=== PATIENT | female | born 1935 | race Caucasian/White ===

== ENCOUNTER 2016-12-10 10:28 | Outpatient (CLI) | payer MEDICARE | END 2016-12-10 10:29 | disposition home or self-care (01) | DX: M79.651 Pain in right thigh (principal) ==

== ENCOUNTER 2017-12-19 13:33 | Outpatient (CLI) | payer MEDICARE ==
--- NOTE | 2017-12-20 12:20 | DEXA Report ---
DEXA SCAN: 12/19/2017 CLINICAL INDICATION: Postmenopausal. TECHNIQUE: Dual energy x-ray absorptiometry (DXA) was performed on a [employer] system. Regions measured are the AP spine, femoral neck, and, if needed, forearm. COMPARISON: None. In accordance with the International Society for Clinical Densitometry (ISCD) guidelines, data from previous exams may be reanalyzed using current recommendations and techniques. This is done to allow a more accurate basis for comparison with the current study. FINDINGS Data for the lumbar spine is as follows: : REGION BMD (g/cm/cm) T-SCORE Z-SCORE L1 1.165 0.3 1.5 L2 0.996 -1.7 -0.5 L3 1.056 -1.2 0.0 L4 1.052 -1.2 -0.1 L1-L4 1.067 -0.9 0.2 L2-L4 1.039 -1.3 -0.2 NOTE: All evaluable vertebrae are used for classification. Data for the hip is as follows: REGION BMD (g/cm/cm) T-SCORE Z-SCORE Neck 0.597 -3.2 -1.3 TOTAL 0.577 -3.4 -1.7 NOTE: The femoral neck or total proximal femur, whichever is lowest, is used for classification. IMPRESSION WHO CLASSIFICATION BASED ON THE INTERNATIONAL REFERENCE STANDARD IS OSTEOPOROSIS. FRACTURE RISK IS HIGH. RECOMMENDATION: Patients with diagnosis of osteoporosis or osteopenia should have regular bone mineral density assessment. For those eligible for Medicare, routine testing is allowed once every 2 years. Testing frequency can be increased for patients who have rapidly progressing disease or for those who are receiving medical therapy to restore bone mass. COMMENT World Health Organization (WHO) definitions for osteoporosis and osteopenia: NORMAL BMD: T-score at 1.0 or higher, fracture risk is low. OSTEOPENIA BMD: T-score between 1.0 and -2.5, fracture risk is increased. OSTEOPOROSIS BMD: T-score at 2.5 or lower, fracture risk high. National Osteoporosis Foundation recommends: 1. Obtain adequate dietary calcium (at least 1200 mg per day) and vitamin D (400 -800 international units per day). 2. Participate, as appropriate, in regular weightbearing and muscle- strengthening exercise. 3. Avoid tobacco use and reduce alcohol and caffeine intake. 4. For more detailed information see the website at www.NOF.org. TD: 12/19/2017 14:40 MTDD
== END 2017-12-19 13:34 | disposition home or self-care (01) ==
LOC: DI 13:33
PROVIDERS: ATTEND Internal Medicine
DX: M81.0 Age-related osteoporosis without current pathological fracture (principal); Z78.0 Asymptomatic menopausal state
CPT/HCPCS: 77080

== ENCOUNTER 2018-11-30 11:10 | Emergency (ER) | payer MEDICARE ==
[2018-11-30 11:22] VITALS: BP 130/66
--- NOTE | 2018-11-30 12:16 | ED Physician Documentation ---
PD HPI LOWER EXT INJURY - Stated complaint Stated Complaint: LEG PX - Chief complaint Chief Complaint: Ext Problem - History obtained from History obtained from: Patient - History of Present Illness PD HPI LOW EXT INJURY LOCATION: Left (This is a 83-year-old woman who about a year ago had a problem with the right leg. She does not remember the specifics, she knows there was no blood clot and she was placed on antibiotics and it resolved. Over the last couple of days she developed a similar problem in the left leg where she has a tender area on the inside of the left knee. There is no specific injury. Otherwise she feels fine and denies fevers.) Review of Systems Constitutional: denies: Fever, Chills Cardiac: denies: Chest pain / pressure, Palpitations Respiratory: denies: Dyspnea, Cough GI: denies: Abdominal Pain PD PAST MEDICAL HISTORY - Present Medications Home Medications: Ambulatory Orders Medication Instructions Recorded Confirmed Cephalexin [Keflex] 500 mg PO Q6H #28 capsule 11/30/18 - Allergies Allergies/Adverse Reactions: Allergies Allergy/AdvReac Type Severity Reaction Status Date / Time No Known Drug Allergies Allergy Verified 11/30/18 11:22 PD ED PE NORMAL - Vitals Vital signs reviewed: Yes - General General: Alert and oriented X 3, No acute distress - Neuro Neuro: Alert and oriented X 3, Normal speech, Other (On the medial side of the right knee there is a linear ecchymotic area that measures about 10 cm long. It somewhat tender. There is really no swelling.) - Psych Psych: Normal mood, Normal affect Results - Vitals Vitals: Vital Signs - 24 hr 11/30/18 11:19 Temperature 35.7 C L Heart Rate 68 Respiratory 15 Rate Blood Pressure 130/66 O2 Saturation 96 Oxygen O2 Source Room air - Rads (name of study) LLE DVT sono Radiology: EMP read contemporaneously (neg for DVT) Departure - Departure Disposition: 01 Home, Self Care Clinical Impression: Thrombophlebitis of left leg Condition: Good Record reviewed to determine appropriate education?: Yes Instructions: ED Phlebitis Superficial Prescriptions: Cephalexin [Keflex] 500 mg PO Q6H #28 capsule Comments: Call your doctor to arrange a follow-up appointment, make the next available appointment. In the interim, return anytime if worse or if new symptoms develop.
--- NOTE | 2018-11-30 12:24 | Ultrasound Report ---
Reason: LLE swelling Procedure Date: 11/30/2018 Accession Number: [id number] / [id number] Procedure: US - Duplex Ext Veins Left CPT Code: FULL RESULT: EXAM: LEFT LOWER EXTREMITY VENOUS ULTRASOUND EXAM DATE: 11/30/2018 11:46 AM. CLINICAL HISTORY: Left lower extremity swelling. COMPARISON: None. TECHNIQUE: Real-time sonographic vascular imaging was performed by the certified nurses' aide through the lower extremity utilizing both color-flow and Doppler spectral analysis. Multiple tour sales representative static images were saved for review. FINDINGS: Common Femoral Vein (CFV): Normal. CFV-GSV Junction: Normal. Profunda Femoral Vein (PFV): Normal. Femoral Vein (FV) Prox: Normal. Femoral Vein (FV) Mid: Normal. Femoral Vein (FV) Dist: Normal. Popliteal Vein: Normal. Posterior Tibial Veins: Normal. Peroneal Veins: Normal. Other: None. IMPRESSION: No evidence for deep venous thrombosis. RADIA
== END 2018-11-30 12:37 | disposition home or self-care (01) ==
LOC: ED 11:10
DX: I80.3 Phlebitis and thrombophlebitis of lower extremities, unspecified (principal); R23.3 Spontaneous ecchymoses
CPT/HCPCS: 99283

== ENCOUNTER 2020-11-24 15:51 | Outpatient (CLI) | payer MEDICARE ==
[2020-11-24 16:20] LABS: BASOPHILS # (AUTO) 0.1 10^3/uL (0.0-0.1); BASOPHILS % (AUTO) 0.8 %; EOSINOPHILS # (AUTO) 0.4 10^3/uL (0.0-0.7); EOSINOPHILS % (AUTO) 5.3 %; HCT - HEMATOCRIT 49.7 % (37.0-47.0); LYMPHOCYTES # (AUTO) 1.8 10^3/uL (1.5-3.5); MEAN CORPUSCULAR HGB CONC 32.2 g/dL (32.0-36.0); MEAN CORPUSCULAR VOLUME 90.2 fL (81.0-99.0); MEAN PLATELET VOLUME 9.3 fL (7.9-10.8); MONOCYTES # (AUTO) 0.6 10^3/uL (0.0-1.0); MONOCYTES % (AUTO) 7.1 %; NEUTROPHILS # (AUTO) 5.4 10^3/uL (1.5-6.6); NEUTROPHILS % (AUTO) 64.4 %; PLT - PLATELET COUNT 313 10^3/uL (130-450); RED BLOOD COUNT 5.51 10^6/uL (4.20-5.40); RED CELL DISTRIBUTION WIDTH 13.4 % (12.0-15.0); WHITE BLOOD COUNT 8.4 x10^3/uL (4.8-10.8)
[2020-11-24 16:35] LABS: ALBUMIN 3.8 g/dL (3.2-5.5); ALBUMIN/GLOBULIN RATIO 1.3 (1.0-2.2); BILIRUBIN,TOTAL 0.6 mg/dL (0.2-1.0); CALCIUM 10.1 mg/dL (8.5-10.3); POTASSIUM 4.3 mmol/L (3.5-5.0); TOTAL PROTEIN 6.7 g/dL (6.7-8.2)
== END 2020-11-24 15:52 | disposition home or self-care (01) ==
LOC: LAB 15:51
PROVIDERS: ATTEND Internal Medicine
DX: I10 Essential (primary) hypertension (principal); R06.02 Shortness of breath
CPT/HCPCS: 36415; 80053; 83880; 85025

== ENCOUNTER 2021-01-02 08:51 | Outpatient (CLI) | payer MEDICARE | END 2021-01-02 08:52 | disposition home or self-care (01) | LOC: DI 08:51 | PROVIDERS: ATTEND Internal Medicine | DX: I49.3 Ventricular premature depolarization (principal); I51.7 Cardiomegaly; I70.0 Atherosclerosis of aorta | CPT/HCPCS: 93306 ==

== ENCOUNTER 2021-02-25 12:24 | Outpatient (CLI) | payer MEDICARE ==
--- NOTE | 2021-02-25 12:53 | XRAY Report ---
PROCEDURE: Knee 2 View LT INDICATIONS: KNEE PX LT TECHNIQUE: 2 views of the left knee(s) were acquired. COMPARISON: None. FINDINGS: Bones: No fractures or dislocations. No suspicious bony lesions. Soft tissues: No joint effusion. No suspicious soft tissue calcifications. IMPRESSION: There is severe medial compartment knee joint osteoarthritis, with [id number] articula tion. Soft tissue edema is present anterior to the patella and medial to the patella, with small asso ciated joint effusion and no loose body seen. Reviewed by: Wyatt Portillo MD on 02/25/2021 12:52 PM PDT Approved by: Wyatt Portillo MD on 02/25/2021 12:52 PM PDT Station ID: [id number]
== END 2021-02-25 12:25 | disposition home or self-care (01) ==
LOC: DI.S 12:24
PROVIDERS: ATTEND Internal Medicine
DX: M17.12 Unilateral primary osteoarthritis, left knee (principal); M25.462 Effusion, left knee

== ENCOUNTER 2021-12-27 13:03 | Inpatient (IN) | payer MEDICARE ==
--- OUTSIDE RECORDS SUMMARY | 2021-12-27 13:38 | EXTERNAL MEDICAL SUMMARY RPT | Continuity of Care Document ---
:1935 Author Organization [place] Address [address] [place] [address] Phone Care Team Providers Name Role Phone Trina Thomson Unavailable Unavailable Allergies No information. Encounters No information. Medications No information. Problems date description facility [id number] Sleep disorder, unspecified [facility] [id number] Personal history of other malignant roshan plasm of kidney [facility] [id number] Pain in right knee [facility] [id number] Pain in left knee [facility] [id number] Other chronic pain [facility] [id number] Mixed hyperlipidemia [facility] [id number] Essential (primary) hypertension [facility] [id number] Dyspnea, unspecified [facility] [id number] Acquired absence of kidney [facility] Results No information.
--- NOTE | 2021-12-27 13:50 | ED Physician Documentation ---
PD HPI BACK PAIN - Stated complaint Stated Complaint: BACK PX - Chief complaint Chief Complaint: Back Pain - History obtained from History obtained from: Patient, Family - History of Present Illness Timing - onset: Last night Timing - duration: Hours Timing - details: Abrupt onset, Still present Location: Upper, Right Quality: Pain, Spasm, Sharp, Similar to prior episodes Associated symptoms: No: Fever, Weakness, Numbness, Incontinent of urine, Unable to urinate, Hematuria, Incontinent of stool Improves with: Rest Worsened by: Palpation Contributing factors: No: Lifting, Twisting, Trauma Similar symptoms before: No diagnosis Recently seen: Clinic - Additional information Additional information: 86-year-old Pretty Avelar has developed a pain in her right back that is severe and sharp electrical shock-like pain that was severe last night. She has recently had an episode of chest pain and has been scheduled for a stress test tomorrow. She was asked by her doctor to come to the emergency department for any pains that she sustained during the time prior to her stress test. Review of Systems Constitutional: denies: Fever Eyes: denies: Decreased vision Ears: denies: Ear pain Nose: denies: Congestion Throat: denies: Sore throat Cardiac: reports: Chest pain / pressure. denies: Pedal edema, Calf pain Respiratory: denies: Cough, Hemoptysis GI: denies: Vomiting : denies: Dysuria, Frequency Skin: denies: Rash Musculoskeletal: reports: Back pain. denies: Neck pain, Extremity pain PD PAST MEDICAL HISTORY - Past Medical History Musculoskeletal: Osteoarthritis - Present Medications Home Medications: Ambulatory Orders Medication Instructions Recorded Confirmed Lisinopril [Zestril] 30 mg PO DAILY 12/27/21 12/27/21 Metoprolol Succinate [Toprol Xl] 12.5 mg PO DAILY 12/27/21 12/27/21 - Allergies Allergies/Adverse Reactions: Allergies Allergy/AdvReac Type Severity Reaction Status Date / Time No Known Drug Allergies Allergy Verified 12/27/21 13:09 - Social History Does the pt smoke?: No Smoking Status: Never smoker PD ED PE NORMAL - Vitals Vital signs reviewed: Yes (normal ) - General General: Alert and oriented X 3, No acute distress, Well developed/nourished - HEENT HEENT: Atraumatic, PERRL, EOMI - Neck Neck: Supple, no meningeal sign, No bony TTP - Cardiac Cardiac: RRR, No murmur - Respiratory Respiratory: No respiratory distress, Other (rhonchi to the right base is reproducible. There is specific tenderness to the R 10th rib posterolateral ) - Abdomen Abdomen: Soft, Non tender - Back Back: No CVA TTP, No spinal TTP - Derm Derm: Normal color, Warm and dry, No rash - Extremities Extremities: No deformity, No edema - Neuro Neuro: Alert and oriented X 3, hose suspender cutter 2-12 intact, No motor deficit, No sensory deficit, Normal speech Eye Opening: Spontaneous Motor: Obeys Commands Verbal: Oriented GCS Score: 15 - Psych Psych: Normal mood, Normal affect Results - Vitals Vitals: Vital Signs - 24 hr 12/27/21 12/27/21 13:09 15:23 Temperature 36.5 C Heart Rate 82 72 Respiratory 16 17 Rate Blood Pressure 128/69 152/89 H O2 Saturation 96 96 Oxygen O2 Source Room air - Labs Labs: Laboratory Tests 12/27/21 12/27/21 12/27/21 13:59 13:59 13:59 WBC 18.1 H RBC 5.35 Hgb 15.8 Hct 47.8 H MCV 89.3 MCH 29.5 MCHC 33.1 RDW 13.2 Plt Count 318 MPV 8.7 Neut # (Auto) 15.6 H Lymph # (Auto) 1.3 L Coles # (Auto) 1.0 Eos # (Auto) 0.1 Baso # (Auto) 0.1 Absolute Nucleated RBC 0.00 Nucleated RBC % 0.0 Sodium 138 Potassium 4.2 Chloride 105 Carbon Dioxide 24 Anion Gap 9.0 BUN 14 Creatinine 0.9 Estimated GFR (MDRD) 59 L Glucose 121 H Calcium 9.2 Total Bilirubin 0.9 AST 45 H ALT 26 Alkaline Phosphatase 75 Troponin I High Sens 14.4 B-Natriuretic Peptide Total Protein 6.9 Albumin 3.3 Globulin 3.6 Albumin/Globulin Ratio 0.9 L Lipase 34 Urine Color Urine Clarity Urine pH Ur Specific Tiger Urine Protein Urine Glucose (UA) Urine Ketones Urine Occult Blood Urine Nitrite Urine Bilirubin Urine Urobilinogen Ur Leukocyte Esterase Urine RBC Urine WBC Ur Squamous Epith Cells Urine Bacteria Ur Microscopic Review Urine Culture Comments 12/27/21 12/27/21 13:59 15:15 WBC RBC Hgb Hct MCV MCH MCHC RDW Plt Count MPV Neut # (Auto) Lymph # (Auto) Coles # (Auto) Eos # (Auto) Baso # (Auto) Absolute Nucleated RBC Nucleated RBC % Sodium Potassium Chloride Carbon Dioxide Anion Gap BUN Creatinine Estimated GFR (MDRD) Glucose Calcium Total Bilirubin AST ALT Alkaline Phosphatase Troponin I High Sens B-Natriuretic Peptide 156 H Total Protein Albumin Globulin Albumin/Globulin Ratio Lipase Urine Color YELLOW Urine Clarity SL. CLOUDY Urine pH 7.0 Ur Specific Tiger 1.010 Urine Protein NEGATIVE Urine Glucose (UA) NEGATIVE Urine Ketones NEGATIVE Urine Occult Blood NEGATIVE Urine Nitrite NEGATIVE Urine Bilirubin NEGATIVE Urine Urobilinogen 0.2 (NORMAL) Ur Leukocyte Esterase SMALL H Urine RBC None Seen Urine WBC 6-10 H Ur Squamous Epith Cells MOD Squamous H Urine Bacteria None Seen Ur Microscopic Review INDICATED Urine Culture Comments NOT INDICATED - Rads (name of study) CT chest with Radiology: Prelim report reviewed (Impression: 1. Acute pulmonary embolism, right greater than left. No findings to suggest right heart strain.) duplex viens bilat Radiology: Prelim report reviewed (+ DVT at common femoral and SVT to the greater saphenous vein to the knee. ), EMP read indepedently, See rad report PD MEDICAL DECISION MAKING - ED course Complexity details: reviewed old records, reviewed results, re-evaluated patient, considered differential, d/w patient, d/w family ED course: 5 foot 3 inch, 70kg Pretty Avelar with a history of hypertension has had her gallbladder out previously and she has otherwise been without medical catastrophes. She has recently had an episode of chest pain and is scheduled for a treadmill test tomorrow. Her physician has asked her to come in to the emergency department for any pain that she has. She has pain to the right lower rib posteriorly that is reproducible and she has corresponding findings of rhonchi in the lung on that side. The area of pain appears specific and is reproducible. I do not see any skin changes to indicate zoster. She has had symptoms for a year and they have never been this bad. Here in the emergency department we have undertaken a work-up to include a CT of the chest as well as blood work and urinalysis. The CT shows pulmonary embolism with a large clot burden on the right with reflux of contrast into the IVC. The patient is treated in the ED with sub-Q Lovenox and her legs are scanned for quantification of clot burden present. Showing clot on the right in the common femoral and superficial saphenous. The patients PESI score is 87 and places her in the class III risk considered intermediate with 30 day mortality up to 7.5% and hospitalization is recommended. CT chest with:Impression: 1. Acute pulmonary embolism, right greater than left. No findings to suggest right heart strain. 2. Small right pleural effusion with right lower lobe infiltrates suspicious for pulmonary infarct. 3. Subpleural scarring and atelectasis in the right upper and middle lobes. 4. A 0.8 cm nodule in the right middle lobe. Recommend a 3-month follow-up CT. Please see enclosed follow-up recommendation. Departure - Departure Disposition: [facility] DC/Xfer Clinical Impression: Pulmonary embolism and infarction, DVT (deep venous thrombosis) Condition: Stable Discharge Date/Time: 12/27/21 16:30
[2021-12-27 14:05] LABS: BASOPHILS # (AUTO) 0.1 10^3/uL (0.0-0.1); BASOPHILS % (AUTO) 0.4 %; EOSINOPHILS # (AUTO) 0.1 10^3/uL (0.0-0.7); EOSINOPHILS % (AUTO) 0.5 %; HCT - HEMATOCRIT 47.8 % (37.0-47.0); HGB - HEMOGLOBIN 15.8 g/dL (12.0-16.0); LYMPHOCYTES # (AUTO) 1.3 10^3/uL (1.5-3.5); MEAN CORPUSCULAR HEMOGLOBIN 29.5 pg (27.0-31.0); MEAN CORPUSCULAR HGB CONC 33.1 g/dL (32.0-36.0); MEAN CORPUSCULAR VOLUME 89.3 fL (81.0-99.0); MEAN PLATELET VOLUME 8.7 fL (7.9-10.8); MONOCYTES % (AUTO) 5.6 %; NEUTROPHILS # (AUTO) 15.6 10^3/uL (1.5-6.6); NEUTROPHILS % (AUTO) 86.1 %; PLT - PLATELET COUNT 318 10^3/uL (130-450); RED BLOOD COUNT 5.35 10^6/uL (4.20-5.40); RED CELL DISTRIBUTION WIDTH 13.2 % (12.0-15.0); WHITE BLOOD COUNT 18.1 x10^3/uL (4.8-10.8)
[2021-12-27] MEDS ORDERED: IOPAMIDOL-300 100 ML VIAL ONE (14:15)
[2021-12-27 14:22] LABS: ALBUMIN 3.3 g/dL (3.2-5.5); ALBUMIN/GLOBULIN RATIO 0.9 (1.0-2.2); BILIRUBIN,TOTAL 0.9 mg/dL (0.2-1.0); CALCIUM 9.2 mg/dL (8.5-10.3); CREATININE 0.9 mg/dL (0.4-1.0); POTASSIUM 4.2 mmol/L (3.5-5.0); TOTAL PROTEIN 6.9 g/dL (6.7-8.2)
[2021-12-27] MEDS ORDERED: IOPAMIDOL-300 100 ML VIAL IVP ONE (14:41)
[2021-12-27] MEDS ORDERED: SODIUM CHLORIDE 0.9% 1,000 ML IV STA (15:03)
[2021-12-27] MEDS ORDERED: ENOXAPARIN 80 MG/0.8 ML SYRINGE SUBQ STA (15:03)
[2021-12-27 15:26] LABS: BILIRUBIN,URINE NEGATIVE (NEGATIVE); GLUCOSE, URINE (UA) NEGATIVE (NEGATIVE); KETONES,URINE (UA) NEGATIVE (NEGATIVE); LEUKOCYTE ESTERASE, URINE SMALL (NEGATIVE); NITRITE,URINE NEGATIVE (NEGATIVE); OCCULT BLOOD,URINE NEGATIVE (NEGATIVE); PROTEIN,URINE NEGATIVE (NEGATIVE); UROBILINOGEN,URINE 0.2 (NORMAL) E.U./dL (NORMAL)
[2021-12-27 15:27] LABS: CLARITY,URINE SL. CLOUDY (CLEAR)
[2021-12-27 15:38] LABS: BACTERIA,URINE None Seen /HPF (None Seen); RBC,URINE None Seen /HPF (0-5); SQUAMOUS EPITHELIAL CELL,UR MOD Squamous (<= Few)
--- NOTE | 2021-12-27 15:42 | CT Report ---
PROCEDURE: CHEST W INDICATIONS: Right lower pain CONTRAST: IV CONTRAST: Isovue 300 ml: 100 PO CONTRAST: *NO PO CONTRAST TECHNIQUE: After the administration of intravenous contrast, 1 mm axial images were acquired from the pulmonary apices through the posterior costophrenic angles. Axial 5 mm soft tissue kernel reconstructions were performed as well as 8 mm axial MIP and coronal and sagittal 5 mm reformations. For radiation dose reduction, the following was used: automated exposure control, adjustment of mA and/or kV according to patient size. COMPARISON: None. FINDINGS: Image quality: Excellent. Lungs and pleura: Small right pleural effusion. Right lower lobe infiltrate suspicious for pulmonary infarct. Subpleural scars and atelectasis in right upper and middle lobes. There is a 0.8 cm nodule i n the right middle lobe (series 4 image 173). No pneumothorax. Central and peripheral airways are p atent and normal in caliber. Mediastinum: The pulmonary outflow tract is enlarged in size measuring 3.9 cm in diameter. There are intraluminal filling defects involving the right main pulmonary artery, as well as lobar arteries. S mall filling defects are also seen in the left lower lobe segmental artery. The findings are consiste nt with acute pulmonary embolism. Heart size is prominent. RV/LV ratio is normal. Coronary artery calcification. No pericardial effusi on. No mediastinal or hilar adenopathy by size criteria. Thoracic aorta is normal in size. Esophag us is normal in caliber. No hiatal hernia. Bones and chest wall: No suspicious bony lesions. No vertebral body compression fractures. No axil [place] or supraclavicular adenopathy by size criteria. The thyroid is normal in size and there are no incidental findings.. Abdomen: Left kidney and adrenal gland are surgically resected. There are multiple right renal calcul i. No stones or hydronephrosis. Right adrenal thickening and nodularity. Bladder is surgically absen t. There is mild pneumobilia. Common bile duct is dilated measuring 11 mm in diameter. No common bile duct stones. A few small indeterminate hepatic hypodensities are seen. IMPRESSION: 1. Acute pulmonary embolism, right greater than left. No findings to suggest right heart strain. 2. Small right pleural effusion with right lower lobe infiltrates suspicious for pulmonary infarct. 3. Subpleural scars and atelectasis in right upper and middle lobes. 4. A 0.8 cm nodule in the right middle lobe. Recommend a 3 month follow-up CT. Please see enclosed fo llow-up recommendation. The result was discussed with Dr. Valle. Fleischner Society criteria for SOLID lung nodule followup. Nodule size (mm)Low-risk patientHigh-risk patient "d4No follow-up neededFollow-up at 12 mo; if no change, no further follow-up >1-8Onizuu-rh CT at 12 mo; if no change, no further follow-up needed.Initial follow-up CT at 6-12 mo, then 18-24 mo if no change. >6-8Initial follow-up CT at 6-12 mo, then 18-24 mo if no change. Initial follow-up CT at 3-6 mo, then 9-12 mo and 24 mo if no change. >8Follow-up CT at 3, 9, 24 mo. Or PET and/or biopsy.Same as for low-risk pts. Reviewed by: Jessica Mortensen MD on 12/27/2021 2:40 PM MARK ANTHONY Approved by: Jessica Mortensen MD on 12/27/2021 2:40 PM [place] Station ID: [id number]
[2021-12-27] MEDS ORDERED: ONDANSETRON 4 MG/2 ML VIAL IVP PRN (15:57)
[2021-12-27] MEDS ORDERED: ACETAMINOPHEN 325 MG TABLET PO PRN (15:57)
[2021-12-27] MEDS ORDERED: SODIUM CHLORIDE FLUSH 0.9% 10 ML SYRINGE IVP PRN (15:57)
--- NOTE | 2021-12-27 16:04 | HISTORY & PHYSICAL EXAMINATION ---
Chief Complaint - Chief Complaint Chief Complaint: back pain History of Present Illness - Admitted From Admitted From:: [facility] ED - History Obtained From Records Reviewed: yes History obtained from: patient and family - History of Present Illness HPI Comment/Other: Patient is an 86-year-old female With medical history significant for hypert ension and a remote tomorrow for which she underwent a nephrectomy who presented with complaint of back pain. The pain is located in the center of her back. Onset was last night. It got significantly worse this morning. She reported similar pain intermittently over the past 1-1/2 months. The patient has significant knee joint disease which has gotten progressively worse. As a result she is mostly sedentary. Even when doing basic activities around the house she has to take frequent breaks because of knee pain. She has received a couple of steroid injections into the knee without any benefit. She has been getting significantly winded easily today. On a separate note she denies chest pain but reports an episode 2 weeks ago where she had a dizzy spell associated with chest and back pain. After that incident a stress test was ordered by her tray room worker who is from [place]. The stress test was to be done tomorrow. In the ED work-up included a CT angiogram of the chest. It showed acute pulmonary embolism, right greater than left. No findings to suggest right heart strain. Small right pleural effusion with right lower lobe infiltrate suspicious for pulmonary infarct noted Also 0.8 cm nodule in the right middle lobe was seen. Due to the patient's age and extent of clot burden patient was presented for admission for closer monitoring overnight. At bedside she denies chest pain, abdominal pain, vomiting, fever or chills. She reports nausea. She also reports intermittent sharp back pain. 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 Mother had COPD and breast cancer Social History Notes: She has never used tobacco products or alcohol. She also does not use recreational substances. She lives at home with her family. - POLST Patient has POLST: No POLST Status: Full Code Meds/Allgy - Home Medications Home Medications: Ambulatory Orders Medication Instructions Recorded Confirmed Lisinopril [Zestril] 30 mg PO DAILY 12/27/21 12/27/21 Metoprolol Succinate [Toprol Xl] 12.5 mg PO DAILY 12/27/21 12/27/21 Apixaban [Eliquis] 5 mg PO BID #70 tablet 12/28/21 Rivaroxaban [Xarelto] 15 mg PO BID 21 Days #42 tablet 12/28/21 Rivaroxaban [Xarelto] 20 mg PO DAILY #30 tablet 12/28/21 - Allergies Allergies/Adverse Reactions: Allergies Allergy/AdvReac Type Severity Reaction Status Date / Time No Known Drug Allergies Allergy Verified 12/27/21 13:09 Review of Systems - Constitutional Constitutional: denies: Fever, Chills - Eyes Eyes: denies: Vision loss, Dipolpia - Ears, Nose & Throat Ears, Nose & Throat: denies: Ear pain, Sore throat - Cardiovascular Cariovascular: denies: Irregular heart rate, Palpitations, Chest pain, Lightheadedness, Syncope, Exertional dyspnea - Respiratory Respiratory: reports: SOB with exertion, Pleuritic pain. denies: Cough, Sputum production, Wheezing, SOB at rest - Gastrointestinal Gastrointestinal: denies: Abdominal pain, Abdominal distention, Constipation, Diarrhea, Nausea, Vomiting, Coffee grounds emesis, Reflux/heartburn - Genitourinary Genitourinary: denies: Dysuria, Frequency, Urgency, Hematuria - Musculoskeletal Musculoskeletal: reports: Back pain, Joint pain (bilateral knee joint). denies: Muscle pain - Integumentary Integumentary: reports: Rash - Neurological Neurological: reports: General weakness. denies: Headache, Dizziness - Psychiatric Psychiatric: denies: Depression, Anxiety - Endocrine Endocrine: denies: Polyuria, Polydypsia - Hematologic/Lymphatic Hematologic/Lymphatic: denies: Anemia, Bruising, Petechiae Prior Level of Functionality: She is independent of activities of daily living however she has severe degenerative joint disease on her bilateral knees which limits her activity/ability to get around. As a result she has to take frequent breaks while trying to do things which require moving around the house. Exam - Vital Signs Vital Signs: Vital Signs x48h Temp Pulse Resp BP Pulse Ox 12/27/21 15:23 72 17 152/89 H 96 12/27/21 13:09 36.5 C 82 16 128/69 96 - Physical Exam General Appearance: positive: Alert, Moderate distress Eyes Bilateral: positive: PERRL, EOMI ENT: positive: No signs of dehydration Neck: positive: No JVD, Trachea midline Respiratory: positive: Chest non-tender, No respiratory distress, Breath sounds nml. negative: Wheezes, Rales, Rhonchi Cardiovascular: positive: Regular rate & rhythm, No murmur Abdomen: positive: Non-tender, No organomegaly, Nml bowel sounds, No distention. negative: Guarding, Rebound Back: positive: Other (Numbness/pain in the center of her back) Skin: positive: Color nml, No rash, Warm, Dry Extremities: positive: Nml appearance, No pedal edema, Other (Pain in her knee joints bilaterally) Neurologic/Psychiatric: positive: Oriented x3, Mood/affect nml Conclusion/Plan - Problem List (1) Pulmonary embolism and infarction Conclusion/Plan: Patient was started on Lovenox 1 nabila per kilogram SQ twice daily. Will switch to an oral medication tomorrow depending on what her insurance permits. She would need to maintain an oral anticoagulant for 12 weeks total. [place] and/or morphine ordered as needed for back pain related to the blood clot. Lower extremity Dopplers were negative for DVTs Patient's stress test would need to be postponed until after 12 weeks f treat,emt for PE (2) Hypertension Conclusion/Plan: Currently controlled. Will order hydralazine as needed for systolic blood pressure greater than 160s. - Lab Results Fish Bones: 12/28/21 04:48 12/28/21 04:48 Core Measures - Anticipated LOS I expect patient to be DC'd or transferred within 96 hours.: Yes - DVT/VTE - Prophylaxis VTE/DVT Device ordered at admit?: No VTE/DVT Prophylaxis med ordered at admit?: Yes
--- NOTE | 2021-12-27 17:13 | Ultrasound Report ---
PROCEDURE: Duplex Ext Veins Bilateral INDICATIONS: 86-year-old woman with pulmonary embolism. TECHNIQUE: Real-time imaging, as well as color and pulse Doppler interrogation, were performed of the deep veins of both legs from the inguinal ligament to the popliteal fossa. COMPARISON: Duplex venous ultrasound right lower extremity, 12/10/2016. Duplex venous ultrasound, low er extremity, 11/30/2018. FINDINGS: Right lower extremity: There are nonocclusive filling defects involving the common femoral vein consi stent with DVT. In addition, there is a filling defects involving the greater saphenous vein from pablo in to the level of the knee, consistent with superficial thrombophlebitis. Left lower extremity: The deep veins are normally compressible, and free of intraluminal thrombus. C olor and pulse Doppler demonstrate normal phasic intravascular flow. There is normal augmentation re sponse to distal compression maneuver. IMPRESSION: 1. Nonocclusive DVT in the right lower extremity. 2. No DVT in the left lower extremity. The result was discussed with Dr. Cummins. Reviewed by: Jessica Mortensen MD on 12/27/2021 4:12 PM AKDT Approved by: Jessica Mortensen MD on 12/27/2021 4:12 PM AKDT Station ID: [id number]
[2021-12-27 17:24] LABS: B. PARAPERTUSSIS- RESP PCR PAN NOT DETECTED; B. PERTUSSIS- RESP PCR PANEL NOT DETECTED; C. PNEUMONIAE- RESP PCR PANEL NOT DETECTED; CORONAVIRUS 229E-RESP PCR NOT DETECTED; CORONAVIRUS HKU1-RESP PCR NOT DETECTED; CORONAVIRUS NL63-RESP PCR NOT DETECTED; CORONAVIRUS OC43-RESP PCR NOT DETECTED; HUMAN METAPNEUMOVIRUS NOT DETECTED; INFLUENZA A- RESP PCR PANEL NOT DETECTED; INFLUENZA B - RESP PCR PANEL NOT DETECTED; M. PNEUMONIAE- RESP PCR PANEL NOT DETECTED; PARAINFLUENZA VIRUS 1 NOT DETECTED; PARAINFLUENZA VIRUS 2 NOT DETECTED; PARAINFLUENZA VIRUS 3 NOT DETECTED; PARAINFLUENZA VIRUS 4 NOT DETECTED; RHINOVIRUS/ENTEROVIRUS NOT DETECTED; RSV- RESP PCR PANEL NOT DETECTED; SARS-CoV-2 -RESP PCR PANEL NOT DETECTED
[2021-12-27] MEDS: SODIUM CHLORIDE FLUSH 0.9% 10 ML SYRINGE IVP SCH ×2 (17:27→23:32)
[2021-12-27] MEDS ORDERED: MORPHINE 2 MG/ML CARPUJECT IVP PRN (18:45)
[2021-12-27] MEDS ORDERED: hydrALAZINE INJ 20 MG/ML VIAL IVP PRN (18:55)
[2021-12-27 19:15] LABS: PHOSPHORUS 2.9 mg/dL (2.5-4.6)
[2021-12-27] MEDS: HYDROcod/ACETAM 5/325 MG TABLET PO PRN (20:51)
[2021-12-28] MEDS: HYDROcod/ACETAM 5/325 MG TABLET PO PRN ×4 (00:33→20:18)
[2021-12-28] MEDS: HYDROmorphone 1 MG/ML CARPUJECT IVP PRN ×2 (00:46→02:43)
--- NOTE | 2021-12-28 01:09 | PROVIDER PROGRESS NOTE ---
Roughing Mill Operator Note - Roughing Mill Operator Note Roughing Mill Operator Note: The patient was signed out to me by the [facility] hospitalist. The patient has had several episodes of nonsustained V. tach this evening, with heart rates of 160. These were asymptomatic. Vital signs were normal during these events, reported to me by her nurse. EKG was done this evening and shows sinus rhythm, rate 69, 1st degree AV block, a PVC, and left bundle branch block. There is no prior EKG at this hospital for comparison however an Echo was done here 1 year ago, and at that time left bundle branch block was described in the report, causing abnormal septal motion. Troponins have been cycled and are 14, 15, 14, ruling her out for an acute VT. Her magnesium and phosphorus are normal. As a board-certified Branch Officer, I performed an urgent bedside limited Echo exam because of the recurrent V. tach. The Echo showed: Normal LV size and wall thickness, normal LV contractility, ejection fraction 55 to 60%, abnormal septal motion seen, caused by the bundle branch block. Brief Doppler exam showed severe (grade 3) diastolic dysfunction of the LV. Right ventricle is mildly to moderately dilated, but with excellent RV function. The aortic and mitral valves have calcific sclerosis. The tricuspid and pulmonic valves were poorly seen. The valves were not evaluated for regurgitation or stenosis by Doppler. I discussed the findings on her Echo with the patient and the patient was examined. She is currently in severe pain in the right posterior rib cage area which is pleuritic, not tender. She was just given Randall and iv Morphine with negligible relief. Exam shows heart rate 126 in sinus tach, blood pressure 158/ 100, O2 saturation 95% on room air. 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 2) Incentive spirometry to prevent atelectasis, since she is splinting from severe pleuritic pain 3) She will need appropriate narcotics prescribed for pain control after disc harge. 4) Anticoagulant meds as already planned 5) Her outpatient stress test, with her Branch Officer in [place] originally scheduled for tomorrow, will need to be postponed 6) Will try to reach her Branch Officer in a.m. to give a warm hand-off regarding the VT and current diagnoses of PE, pulmonary infract and Cor pulmonale. CRITICAL CARE TIME SPENT: 35 min
[2021-12-28] MEDS ORDERED: ENOXAPARIN 80 MG/0.8 ML SYRINGE SUBQ SCH ×2 (03:00→06:00)
[2021-12-28 05:19] LABS: BASOPHILS # (AUTO) 0.1 10^3/uL (0.0-0.1); BASOPHILS % (AUTO) 0.4 %; EOSINOPHILS # (AUTO) 0.1 10^3/uL (0.0-0.7); EOSINOPHILS % (AUTO) 0.4 %; HCT - HEMATOCRIT 42.2 % (37.0-47.0); HGB - HEMOGLOBIN 13.7 g/dL (12.0-16.0); LYMPHOCYTES # (AUTO) 1.5 10^3/uL (1.5-3.5); LYMPHOCYTES % (AUTO) 8.8 %; MEAN CORPUSCULAR HEMOGLOBIN 29.1 pg (27.0-31.0); MEAN CORPUSCULAR HGB CONC 32.5 g/dL (32.0-36.0); MEAN CORPUSCULAR VOLUME 89.8 fL (81.0-99.0); MEAN PLATELET VOLUME 9.4 fL (7.9-10.8); MONOCYTES # (AUTO) 1.2 10^3/uL (0.0-1.0); NEUTROPHILS # (AUTO) 13.9 10^3/uL (1.5-6.6); NEUTROPHILS % (AUTO) 82.8 %; PLT - PLATELET COUNT 297 10^3/uL (130-450); RED CELL DISTRIBUTION WIDTH 13.4 % (12.0-15.0); WHITE BLOOD COUNT 16.7 x10^3/uL (4.8-10.8)
[2021-12-28 05:34] LABS: CALCIUM 8.4 mg/dL (8.5-10.3); CREATININE 0.8 mg/dL (0.4-1.0); POTASSIUM 4.2 mmol/L (3.5-5.0)
--- NOTE | 2021-12-28 07:45 | PROVIDER PROGRESS NOTE ---
Assessment/Plan - Problem List (1) Pulmonary embolism and infarction Assessment/Plan: Continue Lovenox 1 mg/kg SQ twice daily. Patient experienced severe pleuritic pain related to pulmonary infarct. Dilaudid IV ordered/required to appropriately manage pain. As a result patient was made inpatient for continued pain management. (2) Nonsustained ventricular tachycardia Assessment/Plan: Patient's electrolytes including magnesium and phosphorus were checked and noted to be normal. Troponin was trended and unremarkable with a last troponin around 15. EKG showed a left bundle branch block. Verifying with the patient's development officer Dr. Lau he reports the patient had an unknown left bundle branch block. A limited bedside 2D echocardiogram done last night showed an ejection fraction of 55 to 60%. Abnormal septal motion seen. Severe grade 3 diastolic dysfun ction of LV noted. Right ventricle is mildly to moderately dilated but with excellent RV function. This findings were discussed with Dr. Lau who stated it is consistent with her pulmonary embolus. Recommendations is for continued treatment of the pulmonary embolism with anticoagulants. To postpone cardiac stress test until after completion of treatment for pulmonary embolus. Patient is to follow-up with cardiology in the outpatient setting as planned. This information was relayed to the patient and her daughters who were at bedside. We will continue the patient's metoprolol succinate 12.5 mg p.o. daily. (3) Hypertension Assessment/Plan: On lisinopril 30 mg p.o. daily On metoprolol succinate 12.5 mg p.o. daily Hydralazine 10 mg IV every 6 hours as needed for systolic blood pressure greater than 160. - Current Meds Current Meds: Current Medications Generic Name Dose Route Start Last Admin Trade Name Freq PRN Reason Stop Dose Admin Acetaminophen 650 mg 12/27/21 15:57 12/27/21 17:32 Acetaminophen 325 Mg Tablet PO 650 mg Q4HR PRN Administration Pain 1 to 4, or Fever Hydrocodone Bitart/Acetaminophen 1 tab 12/27/21 18:45 12/28/21 00:33 Hydrocod/Acetam 5/325 Mg Tablet PO 1 tab Q4HR PRN Administration PAIN Hydromorphone HCl 1 mg 12/28/21 00:41 12/28/21 02:43 Hydromorphone 1 Mg/Ml Carpuject IVP 1 mg Q2HR PRN Administration Severe Pain Sodium Chloride 10 ml 12/27/21 17:00 12/27/21 23:32 Sodium Chloride Flush 0.9% 10 Ml Syringe IVP 10 ml 0100,0900,1700 [facility] Administration - Lab Result Fish Bone Diagrams: 12/28/21 04:48 12/28/21 04:48 - Additional Planning My Orders: My Active Orders 12/27/21 15:57 IV Insert [RC] PRN Telemetry- [RC] Q4HR Acetaminophen [Tylenol] 650 mg PO Q4HR PRN Ondansetron Inj [Zofran Inj] 4 mg IVP Q6HR PRN Sodium Chloride Flush 0.9% [Normal Saline Flush 0.9%] 10 ml IVP PRN PRN 12/27/21 15:58 Activity Orders [RC] Q2HR IO [RC] IOSHIFT Incentive Spirometry - RT [RC] TID Initiate Bowel Care Protocol [RC] .protocol Initiate Line Care Protocol [RC] QSHIFT Initiate Personal Care Protoco [RC] .protocol Oxygen Therapy [RC] .PRN Vital Signs [RC] Q4HR Code Status [OTHERS] Routine Condition of Patient [OTHERS] Routine DVT Prophylaxis [OTHERS] Routine 12/27/21 Dinner Cardiac Diet [DIET] 12/27/21 17:00 Sodium Chloride Flush 0.9% [Normal Saline Flush 0.9%] 10 ml IVP 0100,0900,1700 12/27/21 18:45 HYDROcod/ACETAM 5/325 [[place] 5/325] 1 tab PO Q4HR PRN 12/27/21 18:55 hydrALAZINE INJ [Apresoline Inj] 10 mg IVP Q6H PRN 12/28/21 07:41 Admit \ Transfer \ Status [RC] .ONCE 12/28/21 09:00 Enoxaparin [Lovenox] 85 mg SUBQ BID Lisinopril [Zestril] 30 mg PO DAILY Metoprolol Succinate [Toprol Xl] 12.5 mg PO DAILY 12/29/21 05:00 BMP - BASIC METABOLIC PANEL [CHEM] DAILYLAB CBC - COMP BLD CT W/AUTO DIFF [HEME] DAILYLAB 12/30/21 05:00 BMP - BASIC METABOLIC PANEL [CHEM] DAILYLAB CBC - COMP BLD CT W/AUTO DIFF [HEME] DAILYLAB Subjective - Subjective Patient Reports: Other (Patient had increased runs of nonsustained V. tach overnight. Her pain also worsened significantly requiring IV Dilaudid for better control. EKG done showed left bundle branch block. 2D echocardiogram showed a grade 3 diastolic dysfunction. She appeared weak but was resting somewhat comfortably) Objective Vital Signs: Vital Signs - 24 hr 12/27/21 12/27/21 12/27/21 13:09 15:23 16:52 Temperature 36.5 C 36.9 C Heart Rate 82 72 Heart Rate [ 68 Brachial] Respiratory 16 17 20 Rate Blood Pressure 128/69 152/89 H Blood Pressure [Left Brachial artery] Blood Pressure 113/71 [Left Radial artery] Blood Pressure [Right Brachial artery] O2 Saturation 96 96 96 12/27/21 12/27/21 12/28/21 20:45 23:37 00:47 Temperature 37.1 C 37.1 C Heart Rate Heart Rate [ 71 73 81 Brachial] Respiratory 16 18 24 Rate Blood Pressure Blood Pressure 153/62 H 133/87 H [Left Brachial artery] Blood Pressure [Left Radial artery] Blood Pressure 140/93 H [Right Brachial artery] O2 Saturation 96 96 94 12/28/21 04:48 Temperature 37.3 C Heart Rate Heart Rate [ 77 Brachial] Respiratory 16 Rate Blood Pressure Blood Pressure [Left Brachial artery] Blood Pressure [Left Radial artery] Blood Pressure 136/61 H [Right Brachial artery] O2 Saturation 92 Oxygen O2 Source Room air I&O (Last 24 Hrs): Intake and Output Totals x24h 12/26/21 12/27/21 12/28/21 23:59 23:59 23:59 Intake Total 1397 50 Balance 1397 50 General: Alert, Oriented x3, Moderate distress, Severe distress HEENT: PERRLA, EOMI Neck: Supple, No JVD Neuro: Alert, Oriented Times 3 Cardiovascular: Regular rate, Normal S1, Normal S2 Respiratory: Chest non-tender, No respiratory distress, Breath sounds nml Abdomen: Normal bowel sounds, Soft, No tenderness, No masses Extremities: No clubbing, No cyanosis, No edema, No tenderness/swelling Skin: No rashes, No breakdown, No significant lesion - Results Results: Laboratory Results WBC 16.7 x10^3/uL (4.8-10.8) H 12/28/21 04:48 RBC 4.70 10^6/uL (4.20-5.40) 12/28/21 04:48 Hgb 13.7 g/dL (12.0-16.0) 12/28/21 04:48 Hct 42.2 % (37.0-47.0) 12/28/21 04:48 MCV 89.8 fL (81.0-99.0) 12/28/21 04:48 MCH 29.1 pg (27.0-31.0) 12/28/21 04:48 MCHC 32.5 g/dL (32.0-36.0) 12/28/21 04:48 RDW 13.4 % (12.0-15.0) 12/28/21 04:48 Plt Count 297 10^3/uL (130-450) 12/28/21 04:48 MPV 9.4 fL (7.9-10.8) 12/28/21 04:48 Neut # (Auto) 13.9 10^3/uL (1.5-6.6) H 12/28/21 04:48 Lymph # (Auto) 1.5 10^3/uL (1.5-3.5) 12/28/21 04:48 [place] # (Auto) 1.2 10^3/uL (0.0-1.0) H 12/28/21 04:48 Eos # (Auto) 0.1 10^3/uL (0.0-0.7) 12/28/21 04:48 Baso # (Auto) 0.1 10^3/uL (0.0-0.1) 12/28/21 04:48 Absolute Nucleated RBC 0.00 x10^3/uL 12/28/21 04:48 Nucleated RBC % 0.0 /100WBC 12/28/21 04:48 Sodium 133 mmol/L (135-145) L 12/28/21 04:48 Potassium 4.2 mmol/L (3.5-5.0) 12/28/21 04:48 Chloride 100 mmol/L (101-111) L 12/28/21 04:48 Carbon Dioxide 24 mmol/L (21-32) 12/28/21 04:48 Anion Gap 9.0 (6-13) 12/28/21 04:48 BUN 13 mg/dL (6-20) 12/28/21 04:48 Creatinine 0.8 mg/dL (0.4-1.0) 12/28/21 04:48 Estimated GFR (MDRD) 68 (>89) L 12/28/21 04:48 Glucose 131 mg/dL (70-100) H 12/28/21 04:48 Calcium 8.4 mg/dL (8.5-10.3) L 12/28/21 04:48 Phosphorus 2.9 mg/dL (2.5-4.6) 12/27/21 18:51 Magnesium 2.0 mg/dL (1.7-2.8) 12/27/21 18:51 Total Bilirubin 0.9 mg/dL (0.2-1.0) 12/27/21 13:59 AST 45 IU/L (10-42) H 12/27/21 13:59 ALT 26 IU/L (10-60) 12/27/21 13:59 Alkaline Phosphatase 75 IU/L (42-121) 12/27/21 13:59 Troponin I High Sens 14.8 ng/L (2.3-14.8) 12/27/21 23:19 B-Natriuretic Peptide 156 pg/mL (5-100) H 12/27/21 13:59 Total Protein 6.9 g/dL (6.7-8.2) 12/27/21 13:59 Albumin 3.3 g/dL (3.2-5.5) 12/27/21 13:59 Globulin 3.6 g/dL (2.1-4.2) 12/27/21 13:59 Albumin/Globulin Ratio 0.9 (1.0-2.2) L 12/27/21 13:59 Lipase 34 U/L (22-51) 12/27/21 13:59 TSH 1.29 uIU/mL (0.34-5.60) 12/27/21 18:51 Urine Color YELLOW 12/27/21 15:15 Urine Clarity SL. CLOUDY (CLEAR) 12/27/21 15:15 Urine pH 7.0 PH (5.0-7.5) 12/27/21 15:15 Ur Specific [place] 1.010 (1.002-1.030) 12/27/21 15:15 Urine Protein NEGATIVE mg/dL (NEGATIVE) 12/27/21 15:15 Urine Glucose (UA) NEGATIVE mg/dL (NEGATIVE) 12/27/21 15:15 Urine Ketones NEGATIVE mg/dL (NEGATIVE) 12/27/21 15:15 Urine Occult Blood NEGATIVE (NEGATIVE) 12/27/21 15:15 Urine Nitrite NEGATIVE (NEGATIVE) 12/27/21 15:15 Urine Bilirubin NEGATIVE (NEGATIVE) 12/27/21 15:15 Urine Urobilinogen 0.2 (NORMAL) E.U./dL (NORMAL) 12/27/21 15:15 Ur Leukocyte Esterase SMALL (NEGATIVE) H 12/27/21 15:15 Urine RBC None Seen /HPF (0-5) 12/27/21 15:15 Urine WBC 6-10 /HPF (0-5) H 12/27/21 15:15 Ur Squamous Epith Cells MOD Squamous (<= Few) H 12/27/21 15:15 Urine Bacteria None Seen /HPF (None Seen) 12/27/21 15:15 Ur Microscopic Review INDICATED 12/27/21 15:15 Urine Culture Comments NOT INDICATED 12/27/21 15:15 Nasal Adenovirus (PCR) NOT DETECTED 12/27/21 16:10 Nasal B. parapertussis DNA (PCR) NOT DETECTED 12/27/21 16:10 Nasal Coronavir 229E PCR NOT DETECTED 12/27/21 16:10 Nasal Coronavir HKU1 PCR NOT DETECTED 12/27/21 16:10 Nasal Coronavir NL63 PCR NOT DETECTED 12/27/21 16:10 Nasal Coronavir OC43 PCR NOT DETECTED 12/27/21 16:10 Nasal Enterovir/Rhinovir PCR NOT DETECTED 12/27/21 16:10 Nasal Influenza B PCR NOT DETECTED 12/27/21 16:10 Nasal Influenza A PCR NOT DETECTED 12/27/21 16:10 Nasal Parainfluen 1 PCR NOT DETECTED 12/27/21 16:10 Nasal Parainfluen 2 PCR NOT DETECTED 12/27/21 16:10 Nasal Parainfluen 3 PCR NOT DETECTED 12/27/21 16:10 Nasal Parainfluen 4 PCR NOT DETECTED 12/27/21 16:10 Nasal RSV (PCR) NOT DETECTED 12/27/21 16:10 Nasal B.pertussis DNA PCR NOT DETECTED 12/27/21 16:10 Nasal C.pneumoniae (PCR) NOT DETECTED 12/27/21 16:10 Mil Human Metapneumo PCR NOT DETECTED 12/27/21 16:10 Nasal M.pneumoniae (PCR) NOT DETECTED 12/27/21 16:10 Nasal SARS-CoV-2 (PCR) NOT DETECTED 12/27/21 16:10 ABX Reporting Has patient been on IV antibiotics over the past 48 hours?: No
[2021-12-28] MEDS: lisinopriL 20 MG TABLET PO SCH (08:46)
[2021-12-28] MEDS: ENOXAPARIN 100 MG/ML SYRINGE SUBQ SCH ×2 (08:47→20:13)
[2021-12-28] MEDS: SODIUM CHLORIDE FLUSH 0.9% 10 ML SYRINGE IVP SCH ×2 (08:52→16:52)
[2021-12-28] MEDS ORDERED: METOPROLOL SUCCINATE 25 MG TABLET PO SCH (09:00)
--- NOTE | 2021-12-28 14:22 | PHARMACY PROGRESS NOTE ---
- Best Possible Medication History Admit Date and Time: 12/28/21 0741 Processed by: Nursing Medication History completed: Yes As the person ultimately responsible for medication therapy, providers are able to order a medication from an existing home medication list in [facility] via the "Reconcile Routine" prior to Confirmation of that medication by decision support manager. Such practice is discouraged except when the physician, in their clinical judgment, deems that a medical need exists for a medication without regard to previous use.
[2021-12-29] MEDS: SODIUM CHLORIDE FLUSH 0.9% 10 ML SYRINGE IVP SCH ×2 (04:53→08:39)
[2021-12-29 05:19] LABS: BASOPHILS # (AUTO) 0.1 10^3/uL (0.0-0.1); BASOPHILS % (AUTO) 0.5 %; EOSINOPHILS # (AUTO) 0.2 10^3/uL (0.0-0.7); EOSINOPHILS % (AUTO) 2.2 %; HCT - HEMATOCRIT 40.9 % (37.0-47.0); HGB - HEMOGLOBIN 13.8 g/dL (12.0-16.0); LYMPHOCYTES # (AUTO) 1.5 10^3/uL (1.5-3.5); LYMPHOCYTES % (AUTO) 15.1 %; MEAN CORPUSCULAR HEMOGLOBIN 30.3 pg (27.0-31.0); MEAN CORPUSCULAR HGB CONC 33.7 g/dL (32.0-36.0); MEAN CORPUSCULAR VOLUME 89.7 fL (81.0-99.0); MEAN PLATELET VOLUME 9.6 fL (7.9-10.8); MONOCYTES # (AUTO) 0.7 10^3/uL (0.0-1.0); NEUTROPHILS # (AUTO) 7.2 10^3/uL (1.5-6.6); NEUTROPHILS % (AUTO) 74.2 %; PLT - PLATELET COUNT 322 10^3/uL (130-450); RED BLOOD COUNT 4.56 10^6/uL (4.20-5.40); RED CELL DISTRIBUTION WIDTH 13.3 % (12.0-15.0); WHITE BLOOD COUNT 9.7 x10^3/uL (4.8-10.8)
[2021-12-29 05:25] LABS: CALCIUM 8.9 mg/dL (8.5-10.3); CREATININE 0.9 mg/dL (0.4-1.0); POTASSIUM 4.1 mmol/L (3.5-5.0)
--- NOTE | 2021-12-29 07:24 | Discharge Plan ---
Discharge Plan Problem Reviewed?: Yes Disposition: Home, Self Care Condition: Stable Prescriptions: Metoprolol Succinate [Toprol Xl] 25 mg PO DAILY #30 tablet Rivaroxaban [Xarelto] 15 mg PO BID 21 Days #42 tablet Rivaroxaban [Xarelto] 20 mg PO DAILY #30 tablet Diet: Cardiac Activity Restrictions: Activity as Tolerated Assistance Devices: [facility] Concerns: You came to the hospital because of the back pain which ended up being due to a blood clot in your lung. This caused you to have this chest pain. We treated you with blood thinners and your vital signs have since been stable. You did have occasional arrhythmia during this hospitalization called nonsustained ventricular tachycardia. This is likely because of the blood clot in your lung. We have increased your metoprolol which can help reduce the likelihood of this arrhythmia occurring. We have treated you with a blood thinner and we will discharge you on Xarelto which she will need to continue to take. Plan of Treatment: Please take Xarelto 15 mg twice a day for 3 weeks. This will begin today and the last day will be January 19. Starting in January 20 you will begin to take Xarelto 20 mg once a day in the evening. This will need to be for at least 3 to 6 months. We recommend following up with your primary care physician as you may need lifelong blood thinners or they can perform further testing to see if you are at an increased risk of forming blood clots. Please take metoprolol 25 mg once a day instead of 12.5 mg once a day. You may take Tylenol 650 mg every 6 hours as needed for pain The CT scan of your chest showed a 0.8 cm nodule in the middle lobe of the your right lung. You will need another CT scan in 3 months for follow-up to ensure that this is stable. Please follow-up with your conditioning yard supervisor as scheduled. Assessment: The patient expressed understanding of the treatment plan. Additional Instructions or Follow Up instructions: Please follow-up with your primary care physician in 1 week. Please follow-up with your conditioning yard supervisor as scheduled. Please return to the emergency department if you develop worsening pain or shortness of breath. Please be aware that the blood thinners can increase your risk of bleeding. If you notice blood in your stool or dark stools then please come to the emergency department. If you have any significant trauma such as a fall where you hit your head then please also come to the emergency department. No Smoking: If you smoke, Please STOP! Call for help. Follow-up with: ELOISE CURTIS DO [Primary Care Provider] -
--- NOTE | 2021-12-29 07:56 | DISCHARGE SUMMARY ---
Discharge Summary Admit Date: 12/27/21 Discharge Date: 12/29/21 Discharging Provider: Dago Wilson Primary Care Provider: Trina Thomson Code Status: Attempt Resuscitation Condition at Discharge: Stable Discharge Disposition: 01 Home, Self Care - DIAGNOSES Admission Diagnoses: Pulmonary embolism and infarction Hypertension Discharge Diagnoses with Status of Each Condition: Pulmonary embolism and infarction - improved. Nonsustained ventricular tachycardia - resolved. Right lung nodule - stable. Hypertension - stable. - HPI History of Present Illness: H&P per Dr. Church: Patient is an 86-year-old female With medical history significant for hypertension and a remote tomorrow for which she underwent a nephrectomy who presented with complaint of back pain. The pain is located in the center of her back. Onset was last night. It got significantly worse this morning. She reported similar pain intermittently over the past 1-1/2 months. The patient has significant knee joint disease which has gotten progressively worse. As a result she is mostly sedentary. Even when doing basic activities around the house she has to take frequent breaks because of knee pain. She has received a couple of steroid injections into the knee without any benefit. She has been getting significantly winded easily today. On a separate note she denies chest pain but reports an episode 2 weeks ago where she had a dizzy spell associated with chest and back pain. After that incident a stress test was ordered by her elevator runner who is from [place]. The stress test was to be done tomorrow. In the ED work-up included a CT angiogram of the chest. It showed acute pulmonary embolism, right greater than left. No findings to suggest right heart strain. Small right pleural effusion with right lower lobe infiltrate suspicious for pulmonary infarct noted Also 0.8 cm nodule in the right middle lobe was seen. Due to the patient's age and extent of clot burden patient was presented for admission for closer monitoring overnight. At bedside she denies chest pain, abdominal pain, vomiting, fever or chills. She reports nausea. She also reports intermittent sharp back pain. - HOSPITAL COURSE Hospital Course: The patient was admitted for bilateral pulmonary embolism with infarction. This was thought to be the cause of her right-sided back pain. She was treated with Lovenox before being transitioned to Xarelto. During this hospitalization, her pain was difficult to control and she required IV Dilaudid as well as oral narcotics. This has since significantly improved and she is no longer requiring any opiates. We have recommended that she continue to take Tylenol as needed for pain. An echocardiogram was obtained which showed a preserved ejection f raction but there was evidence of grade 3 diastolic dysfunction and dilated right ventricle but with excellent RV function. She did have nonsustained ventricular tachycardia and we did increase her metoprolol to 25 mg once a day. The patient was scheduled to undergo a stress test and the hospitalist did speak with her elevator runner who recommended outpatient follow-up and to postpone the stress test at this time until we treat her pulmonary embolism appropriately. On discharge, she is prescribed Xarelto 15 mg twice a day until January 19 and this will be followed by Xarelto 20 mg in the evening. She was asked take Tylenol as needed for pain control. We discussed that she has a right pulmonary nodule and she will need a follow-up CT of the chest in 3 months. - ALLERGIES Allergies/Adverse Reactions: Allergies Allergy/AdvReac Type Severity Reaction Status Date / Time No Known Drug Allergies Allergy Verified 12/27/21 13:09 - MEDICATIONS Home Medications: Ambulatory Orders Medication Instructions Recorded Confirmed Lisinopril [Zestril] 30 mg PO DAILY 12/27/21 12/27/21 Metoprolol Succinate [Toprol Xl] 12.5 mg PO DAILY 12/27/21 12/27/21 Rivaroxaban [Xarelto] 15 mg PO BID 21 Days #42 tablet 12/28/21 Rivaroxaban [Xarelto] 20 mg PO DAILY #30 tablet 12/28/21 Metoprolol Succinate [Toprol Xl] 25 mg PO DAILY #30 tablet 12/29/21 - PHYSICAL EXAM AT DISCHARGE General Appearance: positive: No acute distress, Alert Eyes Bilateral: positive: Normal inspection, Conjunctivae nml ENT: positive: ENT inspection nml Neck: positive: Nml inspection Respiratory: positive: No respiratory distress. negative: Wheezes, Rales Cardiovascular: positive: Regular rate & rhythm, No murmur. negative: Tachycardia Abdomen: positive: Non-tender, No distention. negative: Tenderness Skin: positive: Warm, Dry Extremities: positive: No pedal edema. negative: Pedal edema, Kiesha's sign/cords Neurologic/Psychiatric: negative: Disoriented to person, Disoriented to place - LABS Result Diagrams: 12/29/21 04:51 12/29/21 04:51 - DIAGNOSTIC IMAGING Diagnostic Imaging Results: Final report reviewed Diagnostic Imaging Results Comments: Chest CT showed acute pulmonary embolism, right greater than left. No findings suggest right heart strain. Small right pleural effusion with right lower lobe infiltrate suspicious for pulmonary infarct. Subpleural scars and axis in the right upper middle lobes. 0.8 centimeter nodule in right middle lobe. Recommend a 3-month follow-up CT. Venous duplex showed nonocclusive DVT in the right lower extremity. No DVT in the left lower extremity. - FOLLOW UP Follow Up: It was recommended that she follow-up with her primary care physician in 1 week and with her elevator runner as scheduled. She will need a repeat CT of the chest in 3 months for further evaluation of the right middle lobe lung nodule. - TIME SPENT Time Spent in Discharge (Minutes): 34
[2021-12-29 08:02] VITALS: BP 146/71
[2021-12-29] MEDS: lisinopriL 20 MG TABLET PO SCH (08:39)
[2021-12-29] MEDS ORDERED: RIVAROXABAN 15 MG TABLET PO SCH (09:00)
[2021-12-29] MEDS ORDERED: polyethylene glycoL 3350 17 GM PACKET PO SCH (09:00)
[2021-12-29] MEDS ORDERED: METOPROLOL SUCCINATE 25 MG TABLET PO SCH (09:00)
== END 2021-12-29 10:19 | disposition home or self-care (01) | DRG 176 ==
LOC: ED 13:03 → MS2 15:57 → OBSVTOIN 12-28 07:41
PROVIDERS: ADMIT Internal Medicine; ATTEND Internal Medicine
DX: I26.99 Other pulmonary embolism without acute cor pulmonale (principal); I82.411 Acute embolism and thrombosis of right femoral vein; I47.2 Ventricular tachycardia; J90 Pleural effusion, not elsewhere classified; Z20.822 Contact with and (suspected) exposure to COVID-19; R91.1 Solitary pulmonary nodule; I10 Essential (primary) hypertension; M17.0 Bilateral primary osteoarthritis of knee; Z90.5 Acquired absence of kidney; I27.81 Cor pulmonale (chronic); R07.81 Pleurodynia; I44.7 Left bundle-branch block, unspecified
CPT/HCPCS: 36415; 71260; 80048; 80053; 81001; 83690; 83735; 83880; 84100; 84443; 84484; 85025; 87633; 93005; 93970; 96372; 96374; 96375; 96376; 99285; A9270; G0378; J1170; J1650; Q9967; 81003; 87086

== ENCOUNTER 2022-04-18 10:54 | Outpatient (CLI) | payer MEDICARE | END 2022-04-18 10:55 | disposition short-term general hospital (02) | LOC: EMS 10:54 | DX: M79.652 Pain in left thigh (principal); W01.0XXA Fall on same level from slipping, tripping and stumbling without subsequent striking against object, initial encounter; Y92.003 Bedroom of unspecified non-institutional (private) residence as the place of occurrence of the external cause; Z79.01 Long term (current) use of anticoagulants | CPT/HCPCS: A0425; A0429 ==